=== PATIENT | male | born 1960 | race Asian ===

== ENCOUNTER 2019-03-22 13:30 | Outpatient (CLI) | payer OTHER ==
--- NOTE | 2019-03-22 15:41 | ULT ---
VENOUS DOPPLER ULTRASOUND OF THE LEFT LOWER EXTREMITY: HISTORY: Left calf pain. TECHNIQUE: Conde-scale, color-flow, and spectral Doppler imaging of the deep venous system of the left lower extr emity was performed. FINDINGS: There is good flow, compression, and augmentation in the deep veins of the left lower extremity, incl uding the common femoral, femoral, deep femoral, popliteal, posterior tibial, and greater saphenous v eins. Venous reflux is present. IMPRESSION: No evidence of deep venous thrombosis in the left lower extremity. POS: OFF
== END 2019-03-22 13:31 | disposition home or self-care (01) ==
LOC: SCSULT 13:30
PROVIDERS: ATTEND Family Medicine
DX: M79.662 Pain in left lower leg (principal)